=== PATIENT | male | born 2000 | race Caucasian/White ===

== ENCOUNTER 2025-08-18 15:31 | Outpatient (REF) | payer MEDICAID, SELFPAY ==
[2025-08-18 16:28] LABS: HCT 42.8 % (40.0-50.0); HGB 14.4 g/dL (13.5-17.5); MCH 29.3 pg (27.0-33.0); MCHC 33.6 % (32.0-36.0); MCV 87 fL (80-95); MPV 11.3 fL (8.0-11.0); Platelet Count 232 10^3/uL (130-400); RBC 4.91 10^6/uL (4.36-5.78); RDW 12.0 % (11.8-14.1); RDW-SD 38.5 fL; WBC 5.12 10^3/uL (4.4-10.8)
[2025-08-18 17:15] LABS: TSH (W/Ref FT4) 2.72 uIU/mL (0.55-4.78)
[2025-08-18 17:27] LABS: ALT 21 U/L (10-49); AST 23 U/L (<34); Albumin 4.2 g/dL (3.4-5.0); Alkaline Phosphatase 53 U/L (46-116); Anion Gap 7.8 mmol/L (3-11); BUN 8 mg/dL (9-23); Bilirubin, Total 0.70 mg/dL (0.2-1.2); CO2 26.2 mmol/L (20.0-31.0); Calcium 9.2 mg/dL (8.3-10.6); Chloride 107 mmol/L (98-107); Cholesterol 179 mg/dL (<200); Glucose 84 mg/dL (74-106); HDL Cholesterol 86 mg/dL (>40); Potassium 3.7 mmol/L (3.5-5.1); Sodium 141 mmol/L (136-145); Total Protein 7.1 g/dL (5.7-8.2)
[2025-08-25 19:27] LABS: Testosterone, Free 26.7 pg/mL (35.0-155.0)
== END 2025-08-18 15:32 | disposition home or self-care (01) ==
LOC: NCHCN 15:31
PROVIDERS: Visit Provider Physician Assistant
DX: Z79.890 Hormone replacement therapy (principal); Z86.39 Personal history of other endocrine, nutritional and metabolic disease; Z13.220 Encounter for screening for lipoid disorders
CPT/HCPCS: 80053; 80061; 84402; 84403; 85027; 84443